=== PATIENT | female | born 1965 | race Caucasian/White ===

== ENCOUNTER 2016-10-31 | Outpatient (CLI) | payer MEDICAID | END 2016-10-31 21:43 | disposition critical access hospital (66) | DX: R06.00 Dyspnea, unspecified (principal) | CPT/HCPCS: A0425; A0427 ==

== ENCOUNTER 2016-10-31 22:17 | Emergency (ER) | payer MEDICAID, OTHER | END 2016-10-31 23:02 | disposition home or self-care (01) | DX: J45.909 Unspecified asthma, uncomplicated (principal); F17.200 Nicotine dependence, unspecified, uncomplicated ==